=== PATIENT | female | born 2000 | race Two or more races ===

== ENCOUNTER 2020-02-23 22:43 | Inpatient (IN) | payer MEDICAID ==
[~2020-02-23] VITALS: Ht 160 cm; Wt 77.6 kg
[2020-02-24] MEDS ORDERED: ONDANSETRON HCL 4MG/2ML INJ IV STA (00:41)
[2020-02-24] MEDS ORDERED: MORPHINE SULFATE 4 MG/ML CPJ (NOT FOR IM USE) IV STA (00:41)
[2020-02-24 00:54] LABS: CLARITY URINE CLOUDY (CLEAR); COLOR URINE YELLOW (YELLOW); KETONES URINE TRACE (NEGATIVE); LEUKOCYTE ESTERASE URINE 2+ (NEGATIVE); NITRITE URINE NEGATIVE (NEGATIVE); OCCULT BLOOD URINE NEGATIVE (NEGATIVE); PROTEIN URINE 1+ (NEGATIVE); SPECIFIC GRAVITY URINE 1.037 (1.005-1.030)
[2020-02-24 01:04] LABS: BASOPHILS % 0.5 % (0.0-2.0); EOSINOPHILS % 1.1 % (0.0-5.0); HEMOGLOBIN. 10.1 g/dL (12.0-16.0); LYMPHOCYTES % 34.2 % (20.0-50.0); MEAN CORPUSCULAR HEMOGLOBIN 20.2 pg (28.0-32.0); MEAN CORPUSCULAR VOLUME 63.9 fL (81.0-99.0); MONOCYTES % 7.9 % (2.0-8.0); NEUTROPHILS % 56.3 % (40.0-76.0); PLATELET 323 x1000/uL (130-400); RED BLOOD CELL COUNT 5.01 mill/uL (4.2-5.4)
[2020-02-24 01:16] LABS: CHLORIDE 110 mEq/L (98-107)
[2020-02-24 02:06] LABS: PROTHROMBIN TIME 10.7 sec (9.6-11.0)
[2020-02-24] MEDS ORDERED: IOHEXOL-300 100 ML BOTTLE ONE (02:09)
[2020-02-24] MEDS ORDERED: CEFTRIAXONE 1 G PREMIX 50 ML IV ONE (02:45)
[2020-02-24] MEDS ORDERED: ACETAMINOPHEN 325MG TABLET PO ONE (03:00)
[2020-02-24] MEDS ORDERED: MORPHINE SULFATE 4 MG/ML CPJ (NOT FOR IM USE) IV ONE (04:30)
[2020-02-24] MEDS ORDERED: ONDANSETRON HCL 4MG/2ML INJ IV ONE (04:30)
[2020-02-24] MEDS ORDERED: SKIN ADHESIVE 0.7 GM EA TOP ONE (06:53)
[2020-02-24] MEDS ORDERED: BUPIVACAINE HCL 0.5% (5MG/ML) 50ML ONE (06:53)
[2020-02-24 06:55] LABS: UCG SCREEN NEGATIVE
[2020-02-24] MEDS ORDERED: LIDOCAINE HCL/PF 1% 10 MG/ML 5ML VIAL ONE (07:29)
[2020-02-24] MEDS ORDERED: FENTANYL CITRATE/PF 50MCG/ML 2ML VIAL ONE ×2 (07:29→07:45)
[2020-02-24] MEDS ORDERED: GLYCOPYRROLATE 0.2 MG/ML 2ML VIAL ONE (07:29)
[2020-02-24] MEDS ORDERED: PROPOFOL 200MG/20ML VIAL IV ONE (07:29)
[2020-02-24] MEDS ORDERED: ONDANSETRON HCL 4MG/2ML INJ ONE (07:29)
[2020-02-24] MEDS ORDERED: DEXAMETHASONE 4MG/ML 1ML VIAL ONE (07:29)
[2020-02-24] MEDS ORDERED: CEFAZOLIN SODIUM 1000MG/VIAL ONE (07:29)
[2020-02-24] MEDS ORDERED: SODIUM CHLORIDE 0.9% 10ML VIAL ONE (07:29)
[2020-02-24] MEDS ORDERED: MIDAZOLAM HCL 2 MG/2 ML VIAL ONE (07:29)
[2020-02-24] MEDS ORDERED: ROCURONIUM BROMIDE 10MG/ML VIAL 5ML IV ONE (07:29)
[2020-02-24] MEDS ORDERED: ALBUTEROL 90MCG/PUFF 17GM INHALER INH ONE (07:29)
[2020-02-24] MEDS ORDERED: NEOSTIGMINE METHYLSULFATE 1MG/ML 10 ML VIAL ONE (07:29)
[2020-02-24] MEDS ORDERED: METOCLOPRAMIDE HCL 10MG/2ML VIAL ONE (07:29)
[2020-02-24] MEDS ORDERED: SUCCINYLCHOLINE CHLORIDE 200MG/10ML IV ONE (07:29)
[2020-02-24] MEDS ORDERED: MORPHINE SULFATE 4 MG/ML CPJ (NOT FOR IM USE) IV PRN (07:45)
[2020-02-24] MEDS ORDERED: ACETAMINOPHEN 325MG TABLET PO PRN ×2 (07:45)
[2020-02-24] MEDS ORDERED: ONDANSETRON HCL 4MG/2ML INJ IV PRN ×3 (07:45→09:45)
[2020-02-24] MEDS ORDERED: ACETAMINOPHEN 650MG SUPP PR PRN ×2 (07:45)
[2020-02-24] MEDS ORDERED: MORPHINE SULFATE 2 MG/ML CPJ (NOT FOR IM USE) IV PRN ×3 (07:45→09:45)
[2020-02-24] MEDS ORDERED: HYDROCODONE/ACETAMINOPHEN 5/325MG TABLET PO PRN ×2 (07:45)
[2020-02-24] MEDS ORDERED: MEPERIDINE HCL/PF 25MG/ML CPJ IV PRN ×2 (08:30→09:45)
[2020-02-24] MEDS ORDERED: SODIUM CHLORIDE 0.9% 1,000 ML IV ONE (08:30)
[2020-02-24] MEDS ORDERED: HYDROMORPHONE HCL/PF 2MG/ML CPJ IV PRN ×2 (08:30→09:43)
[2020-02-24] MEDS ORDERED: DEXT 5%/0.45% NACL KCL 20MEQ/L 1,000 ML IV SCH ×2 (08:30→12:30)
[2020-02-24] MEDS ORDERED: LORAZEPAM 2MG/ML CPJ IV PRN (09:00)
[2020-02-24] MEDS ORDERED: HYDRALAZINE 20MG/ML VIAL IV PRN (09:00)
[2020-02-24] MEDS ORDERED: GUAIFENESIN 200MG/10ML SUGAR FREE UDC PO PRN (09:00)
[2020-02-24] MEDS ORDERED: DIPHENHYDRAMINE 50MG/ML VIAL IV PRN (09:00)
[2020-02-24] MEDS ORDERED: CLONIDINE 0.1MG TABLET PO PRN (09:00)
[2020-02-24] MEDS ORDERED: DOCUSATE SODIUM 100MG CAPSULE PO PRN (09:00)
[2020-02-24] MEDS ORDERED: HYDROMORPHONE HCL/PF 2MG/ML CPJ ONE (09:49)
[2020-02-24 10:00] VITALS: BP 116/71
[2020-02-24] MEDS ORDERED: ENOXAPARIN 40MG/0.4ML SYR SUBCUT SCH (10:00)
[2020-02-24] MEDS ORDERED: FERR-71 MT (11:50)
[2020-02-24] MEDS ORDERED: MULT-1146 MT (11:50)
[2020-02-24 12:00] VITALS: BP 110/69
[2020-02-24] MEDS ORDERED: SODIUM CHLORIDE 0.9% INJ 3ML FLUSH IVF SCH ×2 (14:00)
[2020-02-24 16:00] VITALS: BP 104/52
[2020-02-24 20:11] VITALS: BP 96/58
[2020-02-24 20:48] VITALS: BP 96/58
== END 2020-02-24 20:40 | disposition home or self-care (01) | DRG 234 ==
LOC: ER 22:43 → 6EST 02-24 04:59 → ER 02-24 07:08 → ENRESERV 02-24 07:16
PROVIDERS: ADMIT Internal Medicine; ATTEND Internal Medicine
PROC: 0DTJ4ZZ Resection of Appendix, Percutaneous Endoscopic Approach (ICD-10-PCS; principal; 2020-02-24)
DX: K35.80 Unspecified acute appendicitis (principal); D64.9 Anemia, unspecified; Z88.8 Allergy status to other drugs, medicaments and biological substances; Z79.899 Other long term (current) drug therapy; E87.8 Other disorders of electrolyte and fluid balance, not elsewhere classified
CPT/HCPCS: 36415; 74177; 76830; 76856; 80053; 81003; 81025; 85025; 88304; 93005; 99285; J0330; J0690; J0696; J1100; J1170; J1650; J2250; J2270; J2405; J2704; J2710; J2765; J3010; J3490; J7030; Q9967

== ENCOUNTER 2020-09-08 21:51 | Emergency (ER) | payer MEDICAID ==
[~2020-09-08] VITALS: Ht 167.6 cm; Wt 64.0 kg
[~2020-09-08 21:51] MED LIST: FERR-71 MT; MULT-1146 MT
[2020-09-08] MEDS ORDERED: HYDROCODONE/ACETAMINOPHEN 5/325MG TABLET PO ONE (23:30)
[2020-09-09 00:22] LABS: CHLORIDE 109 mEq/L (98-107)
[2020-09-09 00:23] LABS: CLARITY URINE CLEAR (CLEAR); COLOR URINE YELLOW (YELLOW); KETONES URINE NEGATIVE (NEGATIVE); LEUKOCYTE ESTERASE URINE TRACE (NEGATIVE); NITRITE URINE NEGATIVE (NEGATIVE); OCCULT BLOOD URINE NEGATIVE (NEGATIVE); PH URINE 8.5 (4.5-8.0); PROTEIN URINE NEGATIVE (NEGATIVE); SPECIFIC GRAVITY URINE 1.027 (1.005-1.030)
[2020-09-09 00:24] LABS: BASOPHILS % 0.8 % (0.0-2.0); EOSINOPHILS % 0.5 % (0.0-5.0); HEMATOCRIT. 31.6 % (36.0-48.0); HEMOGLOBIN. 9.5 g/dL (12.0-16.0); LYMPHOCYTES % 29.5 % (20.0-50.0); MEAN CORPUSCULAR HEMOGLOBIN 18.8 pg (28.0-32.0); MEAN CORPUSCULAR VOLUME 62.9 fL (81.0-99.0); MEAN PLATELET VOLUME 9.7 fl (7.4-10.4); MONOCYTES % 6.9 % (2.0-8.0); NEUTROPHILS % 62.3 % (40.0-76.0); PLATELET 295 x1000/uL (130-400); RED BLOOD CELL COUNT 5.02 mill/uL (4.2-5.4); RED CELL DISTRIBUTION WIDTH 17.6 % (11.6-14.6)
[2020-09-09 00:31] LABS: HCG SCREEN NEGATIVE
[2020-09-09 01:54] VITALS: BP 112/64
[2020-09-09 03:02] LABS: PLATELET ESTIMATE NORMAL
== END 2020-09-09 03:02 | disposition home or self-care (01) ==
LOC: ER 21:51
DX: R10.32 Left lower quadrant pain (principal); Z88.6 Allergy status to analgesic agent
CPT/HCPCS: 36415; 76700; 76830; 76856; 80053; 81003; 81025; 84703; 85025; 93005; 99285

== ENCOUNTER 2020-11-13 21:27 | Emergency (ER) | payer MEDICAID ==
[~2020-11-13] VITALS: Ht 160 cm; Wt 66.0 kg
[2020-11-13 21:49] VITALS: BP 120/80
== END 2020-11-14 01:00 | disposition left against medical advice (07) ==
LOC: ER 21:27
DX: R68.89 Other general symptoms and signs (principal); Z53.21 Procedure and treatment not carried out due to patient leaving prior to being seen by health care provider

== ENCOUNTER 2021-09-29 18:01 | Emergency (ER) | payer MEDICAID ==
[~2021-09-29] VITALS: Ht 160 cm; Wt 73.0 kg
[2021-09-29] MEDS ORDERED: ACET-2708 MT ×2 (19:51→19:53)
[2021-09-29] MEDS ORDERED: CEPH500C2 MT ×3 (19:51→19:53)
[2021-09-29] MEDS ORDERED: ACETAMINOPHEN 325MG TABLET PO ONE (20:00)
[2021-09-29] MEDS ORDERED: CEPHALEXIN 250MG CAPSULE PO ONE (20:00)
[2021-09-29 20:07] VITALS: BP 132/72
== END 2021-09-29 20:08 | disposition home or self-care (01) ==
LOC: ER 18:01
DX: L03.316 Cellulitis of umbilicus (principal); J45.909 Unspecified asthma, uncomplicated; Z86.16 Personal history of COVID-19; Z98.890 Other specified postprocedural states
CPT/HCPCS: 99283

== ENCOUNTER 2021-10-05 03:04 | Emergency (ER) | payer MEDICAID ==
[~2021-10-05] VITALS: Ht 160 cm; Wt 74.2 kg
[~2021-10-05 03:04] MED LIST changes: +ACET-2708 MT; +CEPH500C2 MT
[2021-10-05 03:17] VITALS: BP 120/78
[2021-10-05 04:29] LABS: CLARITY URINE CLOUDY (CLEAR); COLOR URINE YELLOW (YELLOW); KETONES URINE TRACE (NEGATIVE); LEUKOCYTE ESTERASE URINE 1+ (NEGATIVE); NITRITE URINE NEGATIVE (NEGATIVE); OCCULT BLOOD URINE 2+ (NEGATIVE); PROTEIN URINE 2+ (NEGATIVE); SPECIFIC GRAVITY URINE 1.041 (1.005-1.030)
[2021-10-05] MEDS ORDERED: ACETAMINOPHEN 325MG TABLET PO ONE (04:30)
[2021-10-05] MEDS ORDERED: NITR-87 MT (05:33)
[2021-10-05] MEDS ORDERED: DOXY100C5 MT (05:33)
[2021-10-09 04:07] LABS: NEISSERIA GONORRHOEAE NAA Negative (Negative)
[2021-10-12] MEDS ORDERED: DOXY100C5 MT (08:28)
[2021-10-12] MEDS ORDERED: METR500T MT (08:28)
== END 2021-10-05 05:42 | disposition home or self-care (01) ==
LOC: ER 03:04
DX: N30.00 Acute cystitis without hematuria (principal); J45.909 Unspecified asthma, uncomplicated; Z88.6 Allergy status to analgesic agent; Z90.49 Acquired absence of other specified parts of digestive tract; Z98.890 Other specified postprocedural states
CPT/HCPCS: 76830; 76856; 81003; 81025; 87491; 87591; 99284

== ENCOUNTER 2021-11-24 16:47 | Emergency (ER) | payer MEDICAID ==
[~2021-11-24] VITALS: Ht 160 cm; Wt 61.0 kg
[~2021-11-24 16:47] MED LIST changes: -CEPH500C2 MT; +DOXY100C5 MT; +METR500T MT
[2021-11-24 16:55] VITALS: BP 102/64
[2021-11-24] MEDS ORDERED: ACETAMINOPHEN 325MG TABLET PO STA (17:56)
[2021-11-24 18:32] LABS: CLARITY URINE CLOUDY (CLEAR); COLOR URINE YELLOW (YELLOW); KETONES URINE TRACE (NEGATIVE); LEUKOCYTE ESTERASE URINE 3+ (NEGATIVE); NITRITE URINE POSITIVE (NEGATIVE); OCCULT BLOOD URINE NEGATIVE (NEGATIVE); PROTEIN URINE 1+ (NEGATIVE); SPECIFIC GRAVITY URINE 1.027 (1.005-1.030)
[2021-11-24 18:58] LABS: BASOPHILS % 0.5 % (0.0-2.0); CHLORIDE 109 mEq/L (98-107); EOSINOPHILS % 0.4 % (0.0-5.0); HEMATOCRIT. 27.1 % (36.0-48.0); HEMOGLOBIN. 8.5 g/dL (12.0-16.0); LYMPHOCYTES % 14.7 % (20.0-50.0); MEAN CORPUSCULAR HEMOGLOBIN 19.6 pg (28.0-32.0); MEAN CORPUSCULAR VOLUME 62.6 fL (81.0-99.0); MEAN PLATELET VOLUME 9.2 fl (7.4-10.4); MONOCYTES % 8.6 % (2.0-8.0); NEUTROPHILS % 75.8 % (40.0-76.0); PLATELET 316 x1000/uL (130-400); RED BLOOD CELL COUNT 4.33 mill/uL (4.2-5.4); RED CELL DISTRIBUTION WIDTH 22.3 % (11.6-14.6)
[2021-11-24 19:07] LABS: HCG SCREEN NEGATIVE
[2021-11-24] MEDS ORDERED: CEPH500C2 MT (19:58)
[2021-11-24 20:00] LABS: PLATELET ESTIMATE NORMAL
== END 2021-11-24 20:07 | disposition home or self-care (01) ==
LOC: ER 16:47
DX: N10 Acute pyelonephritis (principal); D64.9 Anemia, unspecified; Z90.49 Acquired absence of other specified parts of digestive tract; Z88.8 Allergy status to other drugs, medicaments and biological substances
CPT/HCPCS: 36415; 80053; 81003; 84703; 85025; 87077; 87186; 99283

== ENCOUNTER 2022-04-16 23:18 | Emergency (ER) | payer MEDICAID ==
[~2022-04-16] VITALS: Ht 160 cm; Wt 65.8 kg
[~2022-04-16 23:18] MED LIST changes: +CEPH500C2 MT
[2022-04-16 23:37] VITALS: BP 122/74
== END 2022-04-17 02:30 | disposition left against medical advice (07) ==
LOC: ER 23:18
DX: Z53.21 Procedure and treatment not carried out due to patient leaving prior to being seen by health care provider (principal)

== ENCOUNTER 2022-08-13 00:48 | Emergency (ER) | payer MEDICAID ==
[~2022-08-13] VITALS: Ht 160 cm; Wt 64.0 kg
[2022-08-13 01:16] VITALS: BP 110/77
== END 2022-08-13 05:00 | disposition left against medical advice (07) ==
LOC: ER 00:48
DX: Z53.21 Procedure and treatment not carried out due to patient leaving prior to being seen by health care provider (principal)

== ENCOUNTER 2022-08-15 18:31 | Emergency (ER) | payer MEDICAID ==
[~2022-08-15] VITALS: Ht 160 cm; Wt 63.0 kg
[2022-08-15 19:07] VITALS: BP 113/75
== END 2022-08-15 22:14 | disposition left against medical advice (07) ==
LOC: ER 18:31
DX: Z53.21 Procedure and treatment not carried out due to patient leaving prior to being seen by health care provider (principal)

== ENCOUNTER 2022-09-04 14:31 | Emergency (ER) | payer MEDICAID ==
[~2022-09-04] VITALS: Ht 160 cm; Wt 68.0 kg
[2022-09-04 14:40] VITALS: BP 101/60
[2022-09-04] MEDS ORDERED: D-ME118S48 PO (17:01)
== END 2022-09-04 17:09 | disposition home or self-care (01) ==
LOC: ER 14:37
DX: B34.9 Viral infection, unspecified (principal); J45.909 Unspecified asthma, uncomplicated; G43.909 Migraine, unspecified, not intractable, without status migrainosus; Z90.49 Acquired absence of other specified parts of digestive tract; Z88.8 Allergy status to other drugs, medicaments and biological substances
CPT/HCPCS: 93005; 99283

== ENCOUNTER 2022-10-15 02:16 | Emergency (ER) | payer MEDICAID ==
[~2022-10-15] VITALS: Ht 160 cm; Wt 68.5 kg
[~2022-10-15 02:16] MED LIST changes: +D-ME118S48 PO
[2022-10-15] MEDS ORDERED: ACETAMINOPHEN 325MG TABLET PO ONE (05:30)
[2022-10-15 06:14] LABS: BASOPHILS % 0.4 % (0.0-2.0); EOSINOPHILS % 1.2 % (0.0-5.0); HEMATOCRIT. 35.1 % (36.0-48.0); HEMOGLOBIN. 11.7 g/dL (12.0-16.0); LYMPHOCYTES % 30.1 % (20.0-50.0); MEAN CORPUSCULAR HEMOGLOBIN 26.5 pg (28.0-32.0); MEAN CORPUSCULAR VOLUME 79.5 fL (81.0-99.0); MEAN PLATELET VOLUME 8.9 fl (7.4-10.4); MONOCYTES % 7.3 % (2.0-8.0); PLATELET 276 x1000/uL (130-400); RED BLOOD CELL COUNT 4.41 mill/uL (4.2-5.4); RED CELL DISTRIBUTION WIDTH 13.4 % (11.6-14.6)
[2022-10-15 06:25] LABS: CLARITY URINE CLEAR (CLEAR); COLOR URINE YELLOW (YELLOW); KETONES URINE NEGATIVE (NEGATIVE); LEUKOCYTE ESTERASE URINE NEGATIVE (NEGATIVE); NITRITE URINE NEGATIVE (NEGATIVE); OCCULT BLOOD URINE NEGATIVE (NEGATIVE); PROTEIN URINE TRACE (NEGATIVE); SPECIFIC GRAVITY URINE 1.041 (1.005-1.030)
[2022-10-15 06:48] LABS: CHLORIDE 107 mEq/L (98-107)
[2022-10-15 08:14] VITALS: BP 111/68
[2022-10-15] MEDS ORDERED: TOPUD MT (08:44)
== END 2022-10-15 08:55 | disposition home or self-care (01) ==
LOC: ER 02:16
DX: N83.202 Unspecified ovarian cyst, left side (principal); J45.909 Unspecified asthma, uncomplicated; Z88.6 Allergy status to analgesic agent; Z90.49 Acquired absence of other specified parts of digestive tract; Z98.890 Other specified postprocedural states
CPT/HCPCS: 36415; 76830; 76856; 80053; 81003; 81025; 85025; 99284